=== PATIENT | female | born 1950 | race Caucasian/White ===

== ENCOUNTER 2017-04-17 12:21 | Inpatient (IN) | payer MEDICAID ==
[2017-04-17 13:41] LABS: APTT 28.9 SECONDS (22.8-39.4); INR 1.11 (0.85-1.17); PROTIME 14.2 SECONDS (11.6-15.0)
[2017-04-17 13:46] LABS: BASOPHILS 0.3 % (0-2); EOSINOPHILS 2.6 % (0-7); HEMATOCRIT 36.3 % (36.0-48.0); HEMOGLOBIN 11.5 g/dL (12-16); IMMATURE GRANULOCYTES 0.4 % (0-5); MCH 30.5 pg (26.0-34.0); MCHC 31.7 g/dL (31.0-37.0); MCV 96.3 fL (80.0-100.0); MEAN PLATELET VOLUME 11.6 fL (7.4-10.4); MONOCYTES 6.4 % (2-11); NEUTROPHILS 61.3 % (40-80); PLATELET COUNT 369 10x3/uL (130-400); RBC 3.77 10x6/uL (4.00-5.40); RDW 14.6 % (11.5-14.5); WBC 11.2 10x3/uL (4.8-10.8)
[2017-04-17 13:47] LABS: ANION GAP 13.9 mmol/L (8-16); BILIRUBIN - TOTAL 0.16 mg/dL (0.2-1.3); CALCIUM 8.2 mg/dL (8.5-10.1); CARBON DIOXIDE 26.2 mmol/L (21.0-32.0); CREATININE - SERUM 1.6 mg/dL (0.6-1.3); POTASSIUM - SERUM 4.1 mmol/L (3.5-5.1); PROTEIN - SERUM 6.9 g/dL (6.4-8.2)
[2017-04-17 16:08] LABS: UDS - AMPHET NEGATIVE QUAL (NEGATIVE); UDS - BARB NEGATIVE QUAL (NEGATIVE); UDS - BENZO NEGATIVE QUAL (NEGATIVE); UDS - COCAINE NEGATIVE QUAL (NEGATIVE); UDS - OPIATE POSITIVE QUAL (NEGATIVE); UDS - PCP NEGATIVE QUAL (NEGATIVE); UDS - THC NEGATIVE QUAL (NEGATIVE)
[2017-04-17 16:13] LABS: APPEARANCE HAZY (CLEAR); BACTERIA MODERATE /hpf (NONE SEEN); BILIRUBIN NEGATIVE (NEGATIVE); COLOR YELLOW (YELLOW); GLUCOSE NEGATIVE (NEGATIVE); KETONE NEGATIVE (NEGATIVE); NITRITE NEGATIVE (NEGATIVE); PROTEIN NEGATIVE (NEGATIVE); RED CELLS - URINE 0-5 /hpf (0-5); SPECIFIC GRAVITY 1.025 (1.005-1.020); UROBILINOGEN NORMAL (NORMAL)
--- NOTE | 2017-04-17 21:29 | NUR ---
[facility] IS A TOTAL, LEVINQUIN IS JOFRNOHQ-DY-DCS, PT IS ACHS -166, DIDNT COVER PT NOT EATING, TELEMTRY-*SR-72, MEDMLH-CO-82/43, T-98.9, P-86, R-22, 02-4.5L, SORES ON BOTTOM, MARIA [place] ROSARIO, JAY AREA, BLOODSUGAR 166, DIDN'T COVER AT THIS TIME PT NOT EATING, BED IS LOW, SRX2, CALL LIGHT IN REACH, WILL CONTINUE PLAN OF CARE
[2017-04-17] MEDS ORDERED: ZYLOPRIM100 MG PO (22:33)
[2017-04-17] MEDS ORDERED: NEURONTIN 300300 MG PO (22:34)
[2017-04-17] MEDS ORDERED: NORCO 7.5/325 T1 TA1 PO (22:36)
[2017-04-17] MEDS ORDERED: LANTUS INSULIN10 ML SC (22:37)
[2017-04-17] MEDS ORDERED: LISINOPRIL2.5 MG PO (22:37)
[2017-04-17] MEDS ORDERED: FUROSEMIDE40 MG PO (22:38)
[2017-04-17] MEDS ORDERED: REQUIP0.25 MG PO (22:38)
[2017-04-17] MEDS ORDERED: PRAVACHOL40 MG PO (22:39)
[2017-04-17] MEDS ORDERED: GLUCOPHAGE500 MG PO (22:39)
[2017-04-17] MEDS ORDERED: BUTRANS1 EAC2 TRANSDERM (22:42)
[2017-04-17] MEDS ORDERED: VENTOLIN HFA18 GM INH (22:45)
[2017-04-17] MEDS ORDERED: CELEXA10 MG PO (22:46)
[2017-04-17] MEDS ORDERED: FERROUS SULFAT325 MG PO (22:47)
[2017-04-17] MEDS ORDERED: BACTROBAN CREAM15 GM TOPICAL (22:48)
[2017-04-18] VITALS: BP 111/52
[2017-04-18 01:53] VITALS: BMI 30.5
[2017-04-18 04:00] VITALS: BP 114/56
--- NOTE | 2017-04-18 07:32 | NUR ---
AM ROUNDING- RECIEVED REPORT FROM BRAILLE PROOFREADER NURSE JOSEPH. PT IS CURRENTLY LAYING IN BED ON BACK WITH EYES OPEN RESTING. THIS NURSE INTRODUCED MYSLEF PTS NURSE FOR THE DAY, PT SHOOK HEAD IN UNDERSTANDING. WHEN ASKED IF PT WAS IN ANY PAIN PT REPLIES BY SHAKING HEAD. ON 02 AT 4.5L VIA NC. ON MONITOR SHWOING SR, HR 71. IV SEEN TO LEFT FOREARM THAT IS CURRENTLY SALINE LOCKED. BED ALARM IS ON. BED IS IN LOW POSITION, SIDE RAILS ARE UP X2, AND CALL LIGHT IS IN REACH. WILL CONTINUE TO MONITOR AND CONTINUE WITH PLAN OF CARE.
[2017-04-18 08:21] VITALS: BP 116/47
[2017-04-18 12:19] VITALS: BP 118/49
[2017-04-18 12:26] VITALS: BMI 30.4
--- NOTE | 2017-04-18 12:31 | NUR ---
RECIEVED CALL FROM PTS SISTER. PRIOR ON THIS SHIFT I RECEIVED PHONE CALL FROM PTS NIECE (CAREGIVER) WHILE NIECE WAS CHECKING ON PT, I ASKED NIECE ABOUT PTS SORES/SCABS TO PERINEAL/ GROIN AREA. NIECE STATES THAT [facility] AND PT HAS RECIEVED SCABS/SORES THERE FROM [facility] NOT TURNING HER. PTS NIECE PROCEEDED TO CONTINUE TO SAY I'M HER CAREGIVER AND I TAKE GOOD CARE OF HER AND MAKE SURE I TURN AND CLEAN HER. PTS SISTER CALLED AND STATES TO THIS NURSE THAT PTS NIECE (HER DAUGHTER) IS PTS CARGIVER AND PROCEEDED TO TELL ME THAT PT RECIEVED SCABS/[facility]OR[facility] FROM STAFF NOT TURNING HER. I INFORMED PTS SISTER THAT I WAS ASKING NIECE WHILE SPEAKING TO HER ABOUT SCABS/SORES BECAUSE I HAD NOTICIED IT IN SHIFT ASSESSMENT. PTS SISTER STATES THAT PTS NIECE TAKES CARE OF HER AND TAKES GOOD CARE OF HER. I INFORMED PTS SISTER THAT I UNDERSTAND AND I DID'T SAY SHE DID NOT TAKE CARE OF HER AND THAT I WAS ASKING BECAUSE THIS NURSE SAW IT WHILE DOING SHIFT ASSESSMENT.
--- NOTE | 2017-04-18 14:02 | NUR ---
CANDI CRANE AND Celeste TURNED PT ON LEFT SIDE.
--- NOTE | 2017-04-18 16:53 | NUR ---
GIACOMO CASTANEDA NP MADE AWARE OF PTS WOUNDS TO PERINEAL/GROIN AREA. GIACOMO CASTANEDA NP STATES SHE WILL CONSULT WOUND CARE AND POSSIBLE PLACE NEW ORDERS IN FOR MEDICATION FOR AREA.
[2017-04-18 17:30] LABS: BASOPHILS 0.1 % (0-2); EOSINOPHILS 0 % (0-7); HEMATOCRIT 35.5 % (36.0-48.0); IMMATURE GRANULOCYTES 0.3 % (0-5); LYMPHOCYTES 9.1 % (15-50); MCH 30.5 pg (26.0-34.0); MONOCYTES 3.6 % (2-11); NEUTROPHILS 86.9 % (40-80); PLATELET COUNT 400 10x3/uL (130-400); RBC 3.61 10x6/uL (4.00-5.40); RDW 14.6 % (11.5-14.5); WBC 12.3 10x3/uL (4.8-10.8)
[2017-04-18 17:33] LABS: MCV 98.3 fL (80.0-100.0)
--- NOTE | 2017-04-18 17:38 | NUR ---
CANDI CRANE AND Celeste CLEANED PT UP (PT IS INCONTINENT OF URINE) AND TURNED PT TO RIGHT SIDE. THIS NURSE NOTICED WHEN CLEANING PT UP THAT ABDOMEN IS DISTENDED AND SLIGHTLY HARD. GIACOMO CASTANEDA NP ON UNIT. NOTIFIED HER OF THIS. DR. HINOJOSA AND GIACOMO CASTANEDA NP WENT TO ROOM TO MAKE ROUNDS ON PT. NO NEED AT THIS CURRENT TIME. WILL CONTINUE TO MONITOR.
[2017-04-18 17:54] LABS: ANION GAP 12.6 mmol/L (8-16); CALCIUM 8.2 mg/dL (8.5-10.1); CARBON DIOXIDE 26.9 mmol/L (21.0-32.0); CREATININE - SERUM 1.9 mg/dL (0.6-1.3); POTASSIUM - SERUM 4.5 mmol/L (3.5-5.1)
--- NOTE | 2017-04-18 18:22 | NUR ---
SCDS PLACED ON PT ORDERED.
--- NOTE | 2017-04-18 19:30 | NUR ---
RECEIVED REPORT, WILL ASSUME CARE OF PT, TRAVIS AT BEDSIDE, DENIES ANY NEEDS AT THIS TIME, SCD ARE ON, BED IS LOW, SRX2, CALL LIGHT IN REACH, WILL CONTINUE PLAN OF CARE
[2017-04-18 20:00] VITALS: BP 107/40
--- NOTE | 2017-04-18 21:00 | NUR ---
BLOODSUGAR-275- GAVE 6 UNITS ORDER
[2017-04-19] VITALS: BP 139/51
--- NOTE | 2017-04-19 02:35 | NUR ---
ASSESSMENT COMPLETE, SEE FLOWSHEET, MINING HELPER IN ROOM GIVEN TOTAL BED BATH, WILL CONTINUE PLAN OF CARE
[2017-04-19 05:55] VITALS: BP 160/85
[2017-04-19 06:32] LABS: BASOPHILS 0.1 % (0-2); EOSINOPHILS 0 % (0-7); HEMATOCRIT 33.3 % (36.0-48.0); HEMOGLOBIN 10.6 g/dL (12-16); IMMATURE GRANULOCYTES 0.7 % (0-5); LYMPHOCYTES 10.4 % (15-50); MCH 30.5 pg (26.0-34.0); MCHC 31.8 g/dL (31.0-37.0); MEAN PLATELET VOLUME 11.3 fL (7.4-10.4); MONOCYTES 2.6 % (2-11); NEUTROPHILS 86.2 % (40-80); PLATELET COUNT 442 10x3/uL (130-400); RBC 3.47 10x6/uL (4.00-5.40); RDW 14.6 % (11.5-14.5)
[2017-04-19 06:50] LABS: ALBUMIN 2.2 g/dL (3.4-5.0); ANION GAP 13.4 mmol/L (8-16); BILIRUBIN - TOTAL 0.11 mg/dL (0.2-1.3); CALCIUM 8.2 mg/dL (8.5-10.1); CARBON DIOXIDE 27.9 mmol/L (21.0-32.0); CREATININE - SERUM 1.6 mg/dL (0.6-1.3); POTASSIUM - SERUM 4.3 mmol/L (3.5-5.1); PROTEIN - SERUM 6.7 g/dL (6.4-8.2)
--- NOTE | 2017-04-19 07:52 | NUR ---
AM ROUNDING- RECIEVED REPORT FROM FRUIT RECEIVER NURSE JOSEPH. PT IS CURRENTLY LAYING IN BED ON BACK WITH EYES CLOSED RESTING. EQUAL CHEST RISE AND FALL SEEN. ON 02 AT 4.5 VIA NC. ON MONITOR SHOWING SR, HR 74. LEFT CHEST INFUSAPORT SEEN THAT IS ACCESSED. SCDS ARE ON. NO NEED AT THIS CURRENT TIME. BED IS IN LOW POSITION, SIDE RAILS ARE UP X2, AND CALL LIGHT IS IN REACH. WILL CONTINUE TO MONITOR AND CONTINUE WITH PLAN OF CARE.
[2017-04-19 08:00] VITALS: BP 140/55
[2017-04-19 12:00] VITALS: BP 161/50
--- NOTE | 2017-04-19 14:45 | NUR ---
ELENI TIMMONS AND I CLEANED PT UP (PT IS INCONTINENT OF URINE) AND CHANGED LINEN. PT TURNED ON LEFT SIDE (PRIOR ON SHIFT PT WAS TURNED ON RIGHT SIDE). IV ANTIBIOTICS HUNG ORDERED. NO NEED AT THIS CURRENT TIME. WILL CONTINUE TO MONITOR.
[2017-04-19 16:00] VITALS: BP 151/61
--- NOTE | 2017-04-19 17:50 | NUR ---
PT IS CURRENTLY SITTING UP IN BED WITH EYES OPEN RESTING. ASSISTED PT WITH GETTING SITUATED IN BED TO EAT DINNER. NO NEED AT THIS CURRENT TIME. WILL CONTINUE TO MONITOR.
[2017-04-19 20:00] VITALS: BP 123/47
--- NOTE | 2017-04-19 20:21 | NUR ---
BLOODSUGAR-248, [id number] R
--- NOTE | 2017-04-19 23:15 | NUR ---
HELP AIRPLANE TESTER GIVE PT BATH/LINEN CHANGE AND REPOSITION PT
[2017-04-20] VITALS: BP 134/55
[2017-04-20 04:00] VITALS: BP 130/49
[2017-04-20 05:37] LABS: BASOPHILS 0.1 % (0-2); EOSINOPHILS 0 % (0-7); HEMATOCRIT 35.9 % (36.0-48.0); HEMOGLOBIN 11.3 g/dL (12-16); IMMATURE GRANULOCYTES 1.6 % (0-5); LYMPHOCYTES 11.2 % (15-50); MCH 30.4 pg (26.0-34.0); MCHC 31.5 g/dL (31.0-37.0); MCV 96.5 fL (80.0-100.0); MEAN PLATELET VOLUME 11.2 fL (7.4-10.4); MONOCYTES 2.9 % (2-11); NEUTROPHILS 84.2 % (40-80); PLATELET COUNT 461 10x3/uL (130-400); RBC 3.72 10x6/uL (4.00-5.40); RDW 14.6 % (11.5-14.5); WBC 10.8 10x3/uL (4.8-10.8)
[2017-04-20 06:15] LABS: ALBUMIN 2.2 g/dL (3.4-5.0); ANION GAP 15.3 mmol/L (8-16); BILIRUBIN - TOTAL 0.2 mg/dL (0.2-1.3); CALCIUM 8.6 mg/dL (8.5-10.1); CARBON DIOXIDE 28.7 mmol/L (21.0-32.0); CREATININE - SERUM 1.4 mg/dL (0.6-1.3); PROTEIN - SERUM 7.1 g/dL (6.4-8.2)
--- NOTE | 2017-04-20 07:05 | NUR ---
REPORT RECIEVED. RR EVEN AND UNLABORED, PT DENIES NEEDS AT THIS TIME. SCDS ON PT. PT IS ALERT AND ORIENTED X4. WILL CTM.
[2017-04-20 08:00] VITALS: BP 134/48
[2017-04-20 12:00] VITALS: BP 125/53
--- NOTE | 2017-04-20 14:04 | NUR ---
SPOKE TO [facility] ABOUT MEDICAL RECORDS. EXPLAINED THAT THEY WILL FAX OVER RECORDS.
--- NOTE | 2017-04-20 14:15 | NUR ---
PT RESTING QUIELTY, INCONTINENT LARGE AMT URINE. CHANGED JAY PAD, PERINEAL CARE PROVIDED. NO DRESSING ON PRESSURE ULCER ON COCCYX AREA. SMALL, 4CM x4CM CIRCULAR PU NOTED. APPEARS TO BE AT LEAST STAGE III. PT TURNED, WILL CTM.
[2017-04-20 16:00] VITALS: BP 106/60
--- NOTE | 2017-04-20 16:25 | NUR ---
PT RESTING QUILETY, RR EVEN AND UNLABORED. PT CURRENTLY IN UNCONTROLLED A-FIB AT 121. SPOKE TO GIACOMO ELLIS ABOUT PT CONDITION. AWAITING ORDERS.
--- NOTE | 2017-04-20 16:43 | NUR ---
EKG PERFOMRED. PT RESTING QUIELTY, ALERT AND ORIENTED X4.
[2017-04-20 18:04] LABS: CKMB 0.3 U/L (0.0-3.6); CREATINE KINASE 26 UL (21-215)
[2017-04-20 18:07] LABS: TROPONIN-I 0.068 ng/mL (0.000-0.060)
--- NOTE | 2017-04-20 18:31 | NUR ---
PT RESTING QUIELTY, RR EVEN AND UNLABORED. PT IS NOT SYMPTOMATIC SINCE PT HAS HAD A-FIB. NO NEW ORDERS YET. ASKED PT IF SHE FELT WET, TO WHICH SHE DENIED. WILL GIVE REPORT ON PT CONDITION FOR THE DAY.
--- NOTE | 2017-04-20 19:51 | NUR ---
RECEIVED REPORT, WILL ASSUME CARE OF PT, PT SLEEPING, SCD ARE ON, BED IS LOW, SRX2, CALL LIGHT IN REACH, JAZMINE ALARM IS ON, WILL CONTINUE PLAN OF CARE
[2017-04-20 20:51] VITALS: BP 106/49
[2017-04-20 22:51] LABS: CKMB 0.2 U/L (0.0-3.6); CREATINE KINASE 34 UL (21-215)
[2017-04-20 22:52] LABS: TROPONIN-I 0.093 ng/mL (0.000-0.060)
[2017-04-21 01:15] VITALS: BP 122/57
[2017-04-21 03:45] VITALS: BP 139/57
[2017-04-21 05:51] LABS: BASOPHILS 0.1 % (0-2); EOSINOPHILS 0 % (0-7); HEMATOCRIT 36.2 % (36.0-48.0); HEMOGLOBIN 11.5 g/dL (12-16); IMMATURE GRANULOCYTES 2.6 % (0-5); LYMPHOCYTES 12.1 % (15-50); MCH 30.5 pg (26.0-34.0); MCHC 31.8 g/dL (31.0-37.0); MEAN PLATELET VOLUME 11.6 fL (7.4-10.4); MONOCYTES 6.9 % (2-11); NEUTROPHILS 78.3 % (40-80); PLATELET COUNT 441 10x3/uL (130-400); RBC 3.77 10x6/uL (4.00-5.40); RDW 14.6 % (11.5-14.5); WBC 10.5 10x3/uL (4.8-10.8)
--- NOTE | 2017-04-21 07:13 | NUR ---
AM ROUNDS- PT IN BED, RECEIVING A UPDRAFT AT THIS TIME. RESP EVEN AND REGULAR. PT DENIES ANY NEEDS AT THIS TIME. CALL [facility] TIN REACH, BED LOW AND WHEELS LOCKED, BEDSIDE RAILS X2, CALL LIGHT IN REACH, NAD NOTED, WILL CONTINUE TO MONITOR.
[2017-04-21 07:23] LABS: ALBUMIN 2.2 g/dL (3.4-5.0); ALKALINE PHOSPHATASE 93 U/L (46-116); ALT (SGPT) 14 U/L (10-68); BILIRUBIN - TOTAL 0.11 mg/dL (0.2-1.3); CALC OSMOLALITY 301 mosm/kg (275-300); CALCIUM 8.2 mg/dL (8.5-10.1); CARBON DIOXIDE 30.4 mmol/L (21.0-32.0); CHLORIDE - SERUM 100 mmol/L (98-107); CKMB 0.3 U/L (0.0-3.6); CREATINE KINASE 25 UL (21-215); CREATININE - SERUM 1.7 mg/dL (0.6-1.3); GLUCOSE 249 mg/dL (74-106); MAGNESIUM - SERUM 1.3 mg/dL (1.8-2.4); PHOSPHOROUS 3.2 mg/dL (2.5-4.9); POTASSIUM - SERUM 4.2 mmol/L (3.5-5.1); PROTEIN - SERUM 6.6 g/dL (6.4-8.2); SODIUM 139 mmol/L (136-145); UREA NITROGEN 58 mg/dL (7-18); eGFR NON AFRICAN AMERICAN 32 mL/min (90-120)
[2017-04-21 08:00] VITALS: BP 123/54
--- NOTE | 2017-04-21 08:11 | NUR ---
AM MEDS GIVEN AT THIS TIME. ALSO HUNG IVBP CEFEPIME. DIETARY AT BEDSIDE TO PROVIDE PT WITH BREAKFAST TRAY. PT DENIES ANY NEEDS AT THIS TIME. CALL LIGHT IN REACH, NAD NOTED, WILL CONTINUE TO MONITOR.
--- NOTE | 2017-04-21 11:24 | NUR ---
BLOOD SUGAR OF 389, 16UNITS OF HUMULIN GIVEN PER S/S. PT DENIES ANY NEEDS AT THIS TIME. CALL LIGHT IN REACH, NAD NOTED, WILL CONTINUE TO MONITOR.
[2017-04-21 12:00] VITALS: BP 125/50
--- NOTE | 2017-04-21 14:15 | NUR ---
Nutrition Follow Up: Pt stated that her appetite is "okay." She said that she would drink Glucern if ordered. Pt is eating 50% meal avg on a diabetic [facility] soft diet. Wt gain noted. No BM since admit. Labs reviewed - Glucose elevated. Meds noted including Lasix, Solu Medrol. Rec continue current diet. Will send Glucerna with meals. RD following.
[2017-04-21 16:00] VITALS: BP 126/62
--- NOTE | 2017-04-21 17:12 | NUR ---
BLOOD SUGAR OF 231 8UNITS OF HUMULIN R GIVEN PER S/S. PT IN BED, EATING BREAKFAST, DENIES ANY NEEDS AT THIS TIME. CALL LIGHT IN REACH, NAD NOTED, WILL CONTINUE TO MONITOR.
--- NOTE | 2017-04-21 20:15 | NUR ---
REST IN BED AND WATCH TV.
[2017-04-21 21:26] VITALS: BP 123/47
--- NOTE | 2017-04-22 03:03 | NUR ---
PT LYING IN BED, EYES CLOSED, RESPIRATIONS MILDLY LABORED, MOUTH WIDE OPEN, O2 VIA NC @ 4 LPM. CONTINUE TO MONITOR CLOSELY. BED LOW, CALL LIGHT IN REACH, SIDE RAILS X 2, HOB 20 DEGREES.
--- NOTE | 2017-04-22 04:43 | NUR ---
REST COMFORTABLY IN BED, EYE CLOSE, CALL LIGHT IN REACH.
[2017-04-22 06:07] LABS: BASOPHILS 0.1 % (0-2); EOSINOPHILS 0 % (0-7); HEMOGLOBIN 11.5 g/dL (12-16); IMMATURE GRANULOCYTES 2.5 % (0-5); LYMPHOCYTES 11.4 % (15-50); MCH 30.3 pg (26.0-34.0); MCHC 31.9 g/dL (31.0-37.0); MEAN PLATELET VOLUME 11.3 fL (7.4-10.4); MONOCYTES 7.2 % (2-11); NEUTROPHILS 78.8 % (40-80); PLATELET COUNT 392 10x3/uL (130-400); RBC 3.79 10x6/uL (4.00-5.40); RDW 14.5 % (11.5-14.5); WBC 12.7 10x3/uL (4.8-10.8)
[2017-04-22 06:47] LABS: ALBUMIN 2.1 g/dL (3.4-5.0); BILIRUBIN - TOTAL 0.21 mg/dL (0.2-1.3); CALCIUM 8.3 mg/dL (8.5-10.1); CARBON DIOXIDE 30.2 mmol/L (21.0-32.0); CREATININE - SERUM 1.4 mg/dL (0.6-1.3); PROTEIN - SERUM 6.7 g/dL (6.4-8.2)
[2017-04-22 06:52] LABS: ANION GAP 13.3 mmol/L (8-16); POTASSIUM - SERUM 3.5 mmol/L (3.5-5.1)
--- NOTE | 2017-04-22 07:25 | NUR ---
AM ROUNDS- PT IN BED, DENIES ANY NEEDS AT THIS TIME. RESP EVEN AND UNLABORED, LT CHEST INFUSAPORT INFUSING NS @KVO. BED LOW AND WHEELS LOCKED, BEDSIDE RAILS X2, CALL LIGHT IN REACH, NAD NOTED, WILL CONTINUE TO MONITOR.
[2017-04-22 07:59] VITALS: BP 131/60
--- NOTE | 2017-04-22 08:25 | NUR ---
AM MEDS GIVEN AT THIS TIME. PT IN BED, EATING BREAKFAST, DENIES ANY NEEDS AT THIS TIME. IVPB ZOSYN HUNG AT THIS TIME. NAD NOTED, WILL CONTINUE TO MONITOR.
--- NOTE | 2017-04-22 11:22 | NUR ---
BLOOD SUGAR OF 173, 8 UNITS OF HUMULIN R GIVEN PER S/S. PT IN BED, DENIES ANY NEEDS AT THIS TIME. CALL LIGHT IN REACH, CLUB MANAGER AT BEDSIDE TO DO VITAL SIGNS. NAD NOTED, WILL CONTINUE TO MONITOR.
[2017-04-22 12:03] VITALS: BP 130/94
--- NOTE | 2017-04-22 15:03 | NUR ---
INFUSAPORT NEEDLE CHANGED AT THIS TIME USING STERILE TECHNIQUE. PT TOLERATED PROCEDURE WELL, DENIE ANY NEEDS AT THIS TIME. CALL LIGHT INR EACH, NAD NOTED, WILL CONTINUE TO MONITOR. IV FLUSHES BUT DOES NOT DRAW BLOOD. PT STATED THAT SOMETIMES HER PORT WORKS FOR BLOOD DRAWS AND OTHER TIMES IT DOES NOT.
[2017-04-22 16:00] VITALS: BP 114/57
--- NOTE | 2017-04-22 17:06 | NUR ---
BLOOD SUGAR OF 191, 8 UNITS OF HUMULIN R GIVEN PER S/S. PT IN BED, EATING DINNER DENIES ANY NEEDS AT THIS TIME. CALL LIGHT IN REACH, NAD NOTED, WILL CONTINUE TO MONITOR.
[2017-04-22 20:48] VITALS: BP 126/57
--- NOTE | 2017-04-22 22:20 | NUR ---
CHOCOLATE PUDDING GIVEN HS SNACK WITH LANTUS
[2017-04-23] VITALS: BP 122/48
--- NOTE | 2017-04-23 00:31 | NUR ---
NURSE ROUNDS 04/22/17 20:00 - PT LYING IN BED, AWAKE, ALERT, ORIENTED, LOOKING AT TELEVISION, DENIES ANY NEEDS. CONTINUE TO MONITOR CLOSELY. BED LOW, CALL LIGHT IN REACH, SIDE RAILS X 2, HOB 30 DEGREES.
[2017-04-23 06:11] LABS: BASOPHILS 0.1 % (0-2); EOSINOPHILS 0 % (0-7); HEMATOCRIT 36.4 % (36.0-48.0); HEMOGLOBIN 11.7 g/dL (12-16); IMMATURE GRANULOCYTES 3.5 % (0-5); LYMPHOCYTES 17.4 % (15-50); MCH 30.4 pg (26.0-34.0); MCHC 32.1 g/dL (31.0-37.0); MCV 94.5 fL (80.0-100.0); MEAN PLATELET VOLUME 11.6 fL (7.4-10.4); MONOCYTES 8.4 % (2-11); NEUTROPHILS 70.6 % (40-80); PLATELET COUNT 378 10x3/uL (130-400); RBC 3.85 10x6/uL (4.00-5.40); RDW 14.4 % (11.5-14.5); WBC 14.7 10x3/uL (4.8-10.8)
--- NOTE | 2017-04-23 06:17 | NUR ---
PT C/O GREAT GENERALIZED PAIN, REQUESTING PRN PAIN MEDICATION. PT DENIES ANY OTHER NEEDS. CONTINUE TO MONITOR CLOSELY.
[2017-04-23 06:35] LABS: ALBUMIN 2.2 g/dL (3.4-5.0); ANION GAP 14.2 mmol/L (8-16); BILIRUBIN - TOTAL 0.2 mg/dL (0.2-1.3); CALCIUM 8.2 mg/dL (8.5-10.1); CARBON DIOXIDE 29.7 mmol/L (21.0-32.0); CREATININE - SERUM 1.6 mg/dL (0.6-1.3); POTASSIUM - SERUM 3.9 mmol/L (3.5-5.1); PROTEIN - SERUM 6.6 g/dL (6.4-8.2)
--- NOTE | 2017-04-23 07:21 | NUR ---
PT SITTING UP IN BED SLEEPING ARROUSES EASILY DENIES NEEDS WILL CONT TO MONITOR
[2017-04-23 08:06] VITALS: BP 129/59
[2017-04-23 09:37] LABS: MAGNESIUM - SERUM 1.3 mg/dL (1.8-2.4); PHOSPHOROUS 3.3 mg/dL (2.5-4.9)
[2017-04-23 13:02] VITALS: BP 134/63
--- NOTE | 2017-04-23 16:22 | NUR ---
Patient Name: MODE ORTIZ Admission Status: ER Accout number: [id number] Admission Date: 04-17-2017 : 1950 Admission Diagnosis:PNEUMONIA, UNSPECIFIED ORGANISM Attending: JULIANA HINOJOSA Current LOS: 6 Anticipated DC Date: 04-28-2017 Planned Disposition: Home with Home Health Primary Insurance: MEDICAID [place] Discharge Planning Comments: CM met with patient to assess discharge plan / needs. Patient states she plans to discharge back home to niece's house (Desiraejaime Santiago) with [employer] and [facility] (Personal Care Agency). States home environment is safe. Denies any discharge planning needs at this time. Patient requested that CM call her nicolton Merrill to obtain list of home equipment and to coordinate discharge planning. CM called [employer] and verified that patient is current with agency. CM called alicia Merrill completed assessment, obtained list of home medical equipment. Desirae stated that patient will need ambulance transport at discharge. Family is unable to bring patient's wheelchair to hospital prior to discharge because "their car is too small". Desirae requested that CM call her at [phone] when DC is anticipated so she could make sure someone is home for patient arrival. Desirae is paid to care for patient through [facility]. Desirae provides patient's personal care needs: bathing, dressing, meal prep, etc. Desirae states that she, herself, is scheduled to have surgery Thursday04/28/17. States she has arranged alternate caregivers through [facility] to assist with patient's care while Desirae is recovering from surgery. If patient is discharged Thursday04/28/17, the patient's sister, Haroon Neal will need to be called so she can be at the patient's home when she arrives. Patient may need home O2 / walk test and Nebulizer at discharge. CM will continue to follow and assist PRN with discharge planning / needs. DesiraeMaxwell Urias, Haroon Neal, Sister, Is the patient Alert and Oriented? Yes * How many steps to enter\\exit or inside your home? ramp * PCP Franca [phone] * Pharmacy Budget [phone] * Preadmission Environment Home with Family * ADLs Partial Dependent * Partial ADLs (Assistance needed) Bathing, Dressing, Medication Managment, Transfers. * Equipment: Glucometer, Hospital Bed, Paolo Lift, Shower Chair, Wheel Chair * Other Equipment incontinence supplies: adult briefs and chuxs * List name and contact numbers for known caregivers / representatives who currently or will assist patient after discharge: Alicia Faustin, * Community resources currently utilized Home Health Other * Please name any agencies selected above. [facility] [phone] [facility]) [phone] * Additional services required to return to the preadmission environment? Yes * Can the patient safely return to the preadmission environment? Yes * Has this patient been hospitalized within the prior 30 days at any hospital? Yes Netsuite Consultant: Jaye Holman
[2017-04-23 16:23] VITALS: BP 122/59
--- NOTE | 2017-04-23 18:17 | NUR ---
PT SITTING UP IN BED WATCHING TV DENIES NEEDS
[2017-04-23 20:00] VITALS: BP 105/49
--- NOTE | 2017-04-23 21:10 | NUR ---
PT LYING IN BED, AWAKE, ALERT, ORIENTED, DENIES ANY NEEDS AT THIS TIME. FSBS 128, CHOCOLATE PUDDING AND CÉSAR CRACKERS GIVEN FOR HS SNACK. CONTINUE TO MONITOR CLOSELY. BED LOW, CALL LIGHT IN REACH, SIDE RAILS X 2, HOB 30 DEGREES.
[2017-04-24] VITALS: BP 120/53
[2017-04-24 04:00] VITALS: BP 110/51; BP 115/45
[2017-04-24 05:21] LABS: BASOPHILS 0.2 % (0-2); EOSINOPHILS 0.6 % (0-7); HEMATOCRIT 36.1 % (36.0-48.0); HEMOGLOBIN 11.5 g/dL (12-16); IMMATURE GRANULOCYTES 3.8 % (0-5); LYMPHOCYTES 26.6 % (15-50); MCH 30.7 pg (26.0-34.0); MCHC 31.9 g/dL (31.0-37.0); MEAN PLATELET VOLUME 11.7 fL (7.4-10.4); MONOCYTES 9.4 % (2-11); NEUTROPHILS 59.4 % (40-80); PLATELET COUNT 315 10x3/uL (130-400); RBC 3.74 10x6/uL (4.00-5.40); RDW 14.8 % (11.5-14.5); WBC 17.6 10x3/uL (4.8-10.8)
[2017-04-24 05:27] LABS: MCV 96.5 fL (80.0-100.0)
--- NOTE | 2017-04-24 05:27 | NUR ---
PT RESTING COMFORTABLY, NO NEEDS AT THIS TIME. CONTINUE TO MONITOR CLOSELY.
[2017-04-24 05:46] LABS: ALBUMIN 2.1 g/dL (3.4-5.0); ANION GAP 9.1 mmol/L (8-16); BILIRUBIN - TOTAL 0.3 mg/dL (0.2-1.3); C-REACTIVE PROTEIN 0.8 mg/dL (0.0-0.9); CALCIUM 8.5 mg/dL (8.5-10.1); CARBON DIOXIDE 32.5 mmol/L (21.0-32.0); CREATININE - SERUM 1.6 mg/dL (0.6-1.3); MAGNESIUM - SERUM 1.6 mg/dL (1.8-2.4); PHOSPHOROUS 2.9 mg/dL (2.5-4.9); POTASSIUM - SERUM 3.6 mmol/L (3.5-5.1); PROTEIN - SERUM 6.1 g/dL (6.4-8.2)
--- NOTE | 2017-04-24 07:12 | NUR ---
PT SITTING UP IN BED WATCHING TV DENIES NEEDS WILL CONT TO MONITOR
[2017-04-24 08:22] VITALS: BP 118/49
[2017-04-24 11:48] VITALS: BP 175/55
--- NOTE | 2017-04-24 13:27 | NUR ---
Nutrition Follow Up: Pt is eating 67% meal avg on a diabetic [facility] soft diet. +BM 04/23/17. Labs reviewed. Meds noted including Lasix, Prednisone. Rec continue current diet. RD following.
[2017-04-24 16:04] VITALS: BP 114/48
--- NOTE | 2017-04-24 17:57 | NUR ---
PT SITTING UP IN BED WATCHING TV DENIES NEEDS
[2017-04-24 19:00] VITALS: BP 100/50
--- NOTE | 2017-04-24 22:33 | NUR ---
PATIENT IS ALERT, WATCHING TV. CALL LIGHT IN REACH, DENIES ANY NEEDS AT THIS ITME.
[2017-04-25] VITALS: BP 126/48
[2017-04-25 04:00] VITALS: BP 140/52
[2017-04-25 05:51] LABS: BASOPHILS 0.2 % (0-2); HEMATOCRIT 35.1 % (36.0-48.0); HEMOGLOBIN 11.2 g/dL (12-16); IMMATURE GRANULOCYTES 3.1 % (0-5); LYMPHOCYTES 24.4 % (15-50); MCH 30.3 pg (26.0-34.0); MCHC 31.9 g/dL (31.0-37.0); MCV 94.9 fL (80.0-100.0); MEAN PLATELET VOLUME 11.7 fL (7.4-10.4); NEUTROPHILS 63.3 % (40-80); PLATELET COUNT 288 10x3/uL (130-400); RDW 14.5 % (11.5-14.5); WBC 19.7 10x3/uL (4.8-10.8)
[2017-04-25 06:11] LABS: ANION GAP 10.1 mmol/L (8-16); CALCIUM 8.4 mg/dL (8.5-10.1); CARBON DIOXIDE 31.1 mmol/L (21.0-32.0); CREATININE - SERUM 1.5 mg/dL (0.6-1.3); MAGNESIUM - SERUM 1.9 mg/dL (1.8-2.4); PHOSPHOROUS 2.5 mg/dL (2.5-4.9); POTASSIUM - SERUM 4.2 mmol/L (3.5-5.1)
--- NOTE | 2017-04-25 07:18 | NUR ---
PT SITTING UP IN BED SLEEPING RECEIVING BREATHING TX NO S/S DISTRESS RR EVEN AND UNLABORED WILL CONT TO MONITOR
[2017-04-25 08:00] VITALS: BP 121/46
[2017-04-25 12:00] VITALS: BP 153/45
[2017-04-25 16:00] VITALS: BP 119/45
--- NOTE | 2017-04-25 18:05 | NUR ---
PT CLEANED UP FOR INC. PT SITTING UP IN BED DENIES NEEDS
--- NOTE | 2017-04-25 19:15 | NUR ---
RECEIVED CARE FROM DAY NURSE. PT LYING IN LOW ROSSI'S POSITION. EYES CLOSED. RESP EVEN AND UNLABORED. CALL LIGHT AT SIDE.
[2017-04-25 20:52] VITALS: BP 119/48
--- NOTE | 2017-04-25 23:01 | NUR ---
PT LYING IN BED WITH EYES CLOSED. RESP EVEN AND UNLABORED. CALL LIGHT AT SIDE. WILL CONTINUE TO MONITOR.
--- NOTE | 2017-04-26 01:00 | NUR ---
PT RESTING WELL, RESP EVEN AND UNLABORED. CALL LIGHT WITHIN REACH. WILL MONITOR.
[2017-04-26 01:06] VITALS: BP 112/49
[2017-04-26 04:00] VITALS: BP 118/49
[2017-04-26 07:17] LABS: BASOPHILS 0.1 % (0-2); EOSINOPHILS 0.9 % (0-7); HEMATOCRIT 34.4 % (36.0-48.0); HEMOGLOBIN 10.8 g/dL (12-16); IMMATURE GRANULOCYTES 3.7 % (0-5); LYMPHOCYTES 21.2 % (15-50); MCHC 31.4 g/dL (31.0-37.0); MCV 95.6 fL (80.0-100.0); NEUTROPHILS 66.1 % (40-80); PLATELET COUNT 280 10x3/uL (130-400); RDW 14.4 % (11.5-14.5); WBC 18.6 10x3/uL (4.8-10.8)
--- NOTE | 2017-04-26 07:54 | NUR ---
INCONTINENCE CARE PROVIDED AT THIS TIME. PT POSITIONED UPRIGHT IN BED FOR BREAKFAST. CALL LIGHT IN REACH, WILL CONTINUE WITH PLAN OF CARE.
[2017-04-26 07:59] LABS: ALBUMIN 2.1 g/dL (3.4-5.0); ANION GAP 11.7 mmol/L (8-16); BILIRUBIN - TOTAL 0.33 mg/dL (0.2-1.3); CALCIUM 8.8 mg/dL (8.5-10.1); CARBON DIOXIDE 31.7 mmol/L (21.0-32.0); CREATININE - SERUM 1.4 mg/dL (0.6-1.3); MAGNESIUM - SERUM 2.1 mg/dL (1.8-2.4); POTASSIUM - SERUM 4.4 mmol/L (3.5-5.1); PROTEIN - SERUM 6.3 g/dL (6.4-8.2)
[2017-04-26 08:00] VITALS: BP 113/45
[2017-04-26 08:01] LABS: PHOSPHOROUS 3.5 mg/dL (2.5-4.9)
--- NOTE | 2017-04-26 10:20 | NUR ---
PRN NORCO ADMINISTERED FOR PAIN 9/10 GENERALIZED AT THIS TIME.
--- NOTE | 2017-04-26 11:00 | NUR ---
URINE SAMPLE OBTAINED FOR URINE CULTURE.
[2017-04-26 16:00] VITALS: BP 129/48
--- NOTE | 2017-04-26 18:00 | NUR ---
REMAINS DRY AT THIS TIME. OXYGEN ON 2L VIA NC. RESPIRATIONS EVEN AND NON LABROED. LEFT CHEST PORT REMAINS PATENT. CALL LIGHT IN REACH, WILL CONTINUE WITH PLAN OF CARE.
[2017-04-26 19:00] VITALS: BP 104/45
--- NOTE | 2017-04-26 19:15 | NUR ---
REPORT RECEIVED. SHIFT ASSESSMENT COMPLETED PER FLOW SHEET. PT LAYING IN BED AWAKE AND ALERT. LT EYE IS CLOUDY PT REPORTS VISION IS DIMINISHED AND IT HAS BEEN LIKE THAT FOR SOME TIME. 2 L O2 VIA NC. S1S2 PRESENT. RADIAL AND PEDAL PULSES PALP. TELEMETRY MONITORING HR OF 91 NORMAL SINUS. BREATHING PATTERN SHALLOW. BS ACTIVE X4. PARALYSIS TO BLE. MUCOUS MEMBRANES MOIST. SKIN WARM AND DRY. LT CHEST IMPLANTED PORT PATENT, DRESSING CDI. SCD'S ON. CALL LIGHT WITHINR REACH. BED IN LOWEST POSITION. WILL CONTINUE TO MONITOR. SEE FLOW SHEET FOR COMPLETE ASSESSMENT.
--- NOTE | 2017-04-26 19:20 | NUR ---
REPORT RECEIVED. SHIFT ASSESSMENT COMPLETED PER FLOW SHEET. PT LAYING IN BED AWAKE AND ALERT, CONVERSANT, SPEECH CLEAR. S1S2 PRESENT. RADIAL AND PEDAL PULSES PALP. BREATH SOUNDS CLEAR EQUAL BILAT. BS ACTIVE X4. REPORT NO PROBLEMS VOIDING OR DEFECATING. MUCOUS MEMBRANES MOIST. SKIN WARM AND DRY. BRUISES NOTED TO RT HAND. RT WRIST PIV, PATENT, SALINE LOCKED. DENIES NEEDS AT THIS TIME. CALL LIGHT WITHIN REACH. BED IN LOWEST POSITION. WILL CONTINUE TO MONITOR.
--- NOTE | 2017-04-26 20:42 | NUR ---
PT LAYING IN BED AWAKE, CONVERSANT. MEDS ADMINISTERED PER EMAR. NO PROBLEMS NOTED TAKING MEDS. DENIES FURTHER NEEDS AT THIS TIME. CALL LIGHT WITHIN REACH. BED IN LOWEST POSITION. WILL CONTINUE TO MONITOR.
--- NOTE | 2017-04-26 20:53 | NUR ---
PT LAYING IN BED, MEDS ADMINISTERED PER EMAR, SEE FOR DETAILS. NO PROBLEMS NOTED TAKING MEDICATIONS. PT DENIES FURTHER NEEDS. CALL LIGHT WITHIN REACH. BED IN LOWEST POSITION. WILL CONTINUE TO MONITOR.
--- NOTE | 2017-04-26 22:00 | NUR ---
PT LAYING IN BED RESTING, NO DISTRESS NOTED. CALL LIGHT WITHIN REACH. BED IN LOWEST POSITION. WILL CONTINUE TO MONITOR.
[2017-04-27] VITALS: BP 114/42
--- NOTE | 2017-04-27 | NUR ---
PT LAYING IN BED RESTING, DENIES NEEDS AT THIS TIME. CALL LIGHT WITHIN REACH. WILL CONTINUE TO MONITOR.
--- NOTE | 2017-04-27 02:00 | NUR ---
PT LAYING IN BED NO DISTRESS NOTED. WILL CONTINUE TO MONITOR. CALL LIGHT WITHIN REACH. BED IN LOWEST POSITION.
--- NOTE | 2017-04-27 04:00 | NUR ---
PT LAYING IN BED RESTING, NO DISTRESS NOTED. CALL LIGHT WITHIN REACH. BED IN LOWEST POSITION. WILL CONTINUE TO MONITOR.
[2017-04-27 04:22] VITALS: BP 107/40
[2017-04-27 04:48] LABS: BASOPHILS 0.1 % (0-2); EOSINOPHILS 0.3 % (0-7); HEMATOCRIT 31.9 % (36.0-48.0); HEMOGLOBIN 10.2 g/dL (12-16); IMMATURE GRANULOCYTES 2.4 % (0-5); LYMPHOCYTES 13.3 % (15-50); MCH 30.5 pg (26.0-34.0); MCV 95.5 fL (80.0-100.0); MEAN PLATELET VOLUME 11.8 fL (7.4-10.4); MONOCYTES 7.3 % (2-11); NEUTROPHILS 76.6 % (40-80); PLATELET COUNT 259 10x3/uL (130-400); RBC 3.34 10x6/uL (4.00-5.40); RDW 14.6 % (11.5-14.5); WBC 21.3 10x3/uL (4.8-10.8)
[2017-04-27 05:10] LABS: ANION GAP 9.5 mmol/L (8-16); BILIRUBIN - TOTAL 0.29 mg/dL (0.2-1.3); CALCIUM 8.2 mg/dL (8.5-10.1); CARBON DIOXIDE 32.2 mmol/L (21.0-32.0); CREATININE - SERUM 1.4 mg/dL (0.6-1.3); POTASSIUM - SERUM 4.7 mmol/L (3.5-5.1); PROTEIN - SERUM 5.9 g/dL (6.4-8.2); VANCOMYCIN - RANDOM 18.2 ug/mL (10.0-20.0)
--- NOTE | 2017-04-27 05:25 | NUR ---
LAB CALLED FOR LOW GLUCOSE, PT IS ALERT AND ORIENTED, REPORTS NO DIZZINESS OR N/V. ORANGE JUICE AND MILK PROVIDED. ENCOURAGED PT TO DRINK THEM, SHE VERBALIZED UNDERSTANDING AND IS DRINKING HER MILK AT THE TIME. WILL RECHECK GLUCOSE. DENIES NEEDS. CALL LIGHT WITHIN REACH. BED IN LOWEST POSITION. WILL CONTINUE TO MONITOR.
--- NOTE | 2017-04-27 06:28 | NUR ---
PT LAYING IN BED, FSBS IS 110. NO INSULIN ADMINISTERED PER SLIDING SCALE. PT DENIES NEEDS. CALL LIGHT WITHIN REACH. BED IN LOWEST POSITION.
--- NOTE | 2017-04-27 07:00 | NUR ---
REPORT RECIEVED FROM OFF GOING NURSE. SEE FLOW SHEET FOR ASSESSMENT. PT ALERT AND ORIRENTED. ABLE TO WIGGLE LOWER EXTRIEMITES AND ABLE TO "FEEL THEM" WHENEVER FEET TOUCHED. NO FC. PT INCOINTIENT. PERICARE PREFORMED AND NEW LINEN TO BED. INFUSAPORT TO LEFT CHEST PATENT. CALL LIGHT IN REACH. WILL CONT POC
[2017-04-27 08:00] VITALS: BP 192/55
--- NOTE | 2017-04-27 10:43 | NUR ---
RHONDA PAGED R/T PT INCOT. AND HER STRICT I&O. PT CURRENTLY HAS NO FC. RHONDA NEW ORDER FOR FC PLACEMENT.
--- NOTE | 2017-04-27 11:09 | NUR ---
16 BENGALI FC PLACED PER ORDERS. 750ML OF CLEAR YELLOW URINE NOTED.
[2017-04-27 12:00] VITALS: BP 159/64
--- NOTE | 2017-04-27 12:00 | NUR ---
NO CHANGES FROM PREVIOUS ASSESSMENT. PT REPOSISTED FOR SKIN INTEGRITY AND COMFORT Q 2 HOURS. BREATHING NORMAL AND UNLABORED. CALL LIGHT IN REACH. WILL CONT POC.
--- NOTE | 2017-04-27 15:00 | NUR ---
NO CHANGES FROM THIS AM. PT ABLE TO FEED SELF. CLEAR YELLOW URINE NOTED IN FC. CALL LIGHT IN REACH. WILL CONT POC
[2017-04-27 16:00] VITALS: BP 145/58
[2017-04-27 19:13] VITALS: BP 112/50
--- NOTE | 2017-04-27 21:49 | NUR ---
HS MEDS GIVEN WITH FRESH ICE WATER, BS 186, COVERED PER S/S. PT DENIES NEEDS, BED LOW, CL IN REACH.
[2017-04-28] VITALS: BP 107/44
--- NOTE | 2017-04-28 03:45 | NUR ---
RESTING WITH EYES CLOSED, RESPERATIONS EVEN, NO S/S DISTRESS NOTED.
--- NOTE | 2017-04-28 04:26 | NUR ---
IMPLANT POLISHER AT BEDSIDE TO OBTAIN VITALS, CALL LIGHT IN REACH. WILL CONTINUE WITH PLAN OF CARE.
[2017-04-28 04:28] VITALS: BP 117/47
--- NOTE | 2017-04-28 05:39 | NUR ---
AM BS RESULTED 68, APPLE SAUCE GIVEN WITH MORNING MEDS, WILL CONT TO MONITOR.
--- NOTE | 2017-04-28 07:00 | NUR ---
REPORT RECIEVEDD FROM OFF GOINGG RN. PT IN BED RESTING WITH EYES CLOSED WITH 0 S/SX OF DISTRESS/DISCOLMFORT NOTED. BREATHING NORMAL AND UNLABORED. SEE FLOW SHEET OR ASSESMENT. CALL LIGHT IN REACH. WILL CONT POC
[2017-04-28 07:58] VITALS: BP 114/54
--- NOTE | 2017-04-28 10:07 | NUR ---
Nutrition Follow Up: Pt is eating 89% meal avg on a diabetic [facility] soft diet. +BM 04/25/17. Wt gain noted. Labs reviewed - Glucose high and low. Meds noted including Lasix. Rec continue current diet. RD following.
[2017-04-28 11:16] VITALS: BP 127/52
--- NOTE | 2017-04-28 12:00 | NUR ---
PT WATCHING TV IN BED. DENIES NEEDS. REPOSITONED FOR COMFORT. CALL LIGHTY IN REACH. WILL CONT POC
[2017-04-28 12:36] LABS: HEMATOCRIT 33.8 % (36.0-48.0); HEMOGLOBIN 10.7 g/dL (12-16); MCH 30.7 pg (26.0-34.0); MCHC 31.7 g/dL (31.0-37.0); MCV 96.8 fL (80.0-100.0); MEAN PLATELET VOLUME 11.7 fL (7.4-10.4); PLATELET COUNT 209 10x3/uL (130-400); RBC 3.49 10x6/uL (4.00-5.40); RDW 14.9 % (11.5-14.5); WBC 22.3 10x3/uL (4.8-10.8)
[2017-04-28 12:45] LABS: ANION GAP 11.3 mmol/L (8-16); CALCIUM 8.2 mg/dL (8.5-10.1); CREATININE - SERUM 1.2 mg/dL (0.6-1.3); POTASSIUM - SERUM 5.3 mmol/L (3.5-5.1)
[2017-04-28 12:53] LABS: EOSINOPHILS 1 % (0-7); LYMPHOCYTES 4 % (15-50); MONOCYTES 11 % (2-11); NEUTROPHILS 81 % (40-80); PLATELET ESTIMATE NORMAL
[2017-04-28 15:41] VITALS: BP 122/43
--- NOTE | 2017-04-28 17:00 | NUR ---
IN BED EATING FOOD WITH NO ISSUES. NO S/SX OF DISTRESS/DISCOMFORT NOTED. CALL LIGHT IN REACH. WILL CONT POC.
[2017-04-28 19:00] VITALS: BP 138/58
--- NOTE | 2017-04-28 19:30 | NUR ---
ALERT/AWAKE DENIES ANY NEEDS OR DISCOMFORT. ASSESSMENTS COMPLETED. TELEMETRY SHOWS 75 SR. L CHEST IP NOTED. SIEGEL INTACT/PATENT DRAINING TO GRAVITY. ORIENTED TO CALL LIGHT FOR ANY NEEDS.
--- NOTE | 2017-04-29 03:25 | NUR ---
C/O LEG PAIN LEVEL 10 ON NUMBER SCALE, DESCRIBED SHARP, STABBING PAIN. ADMIN NORCO PO PER REQUEST.
[2017-04-29 04:00] VITALS: BP 126/49
[2017-04-29 06:15] LABS: BASOPHILS 0.2 % (0-2); EOSINOPHILS 1.6 % (0-7); HEMATOCRIT 32.3 % (36.0-48.0); HEMOGLOBIN 10.3 g/dL (12-16); IMMATURE GRANULOCYTES 1.5 % (0-5); LYMPHOCYTES 13.9 % (15-50); MCH 30.7 pg (26.0-34.0); MCHC 31.9 g/dL (31.0-37.0); MCV 96.4 fL (80.0-100.0); MEAN PLATELET VOLUME 11.5 fL (7.4-10.4); MONOCYTES 10.9 % (2-11); NEUTROPHILS 71.9 % (40-80); PLATELET COUNT 208 10x3/uL (130-400); RBC 3.35 10x6/uL (4.00-5.40); RDW 14.8 % (11.5-14.5)
[2017-04-29 06:17] LABS: WBC 15.4 10x3/uL (4.8-10.8)
[2017-04-29 06:42] LABS: ANION GAP 8.9 mmol/L (8-16); CALCIUM 8.6 mg/dL (8.5-10.1); CARBON DIOXIDE 31.6 mmol/L (21.0-32.0); CREATININE - SERUM 1.2 mg/dL (0.6-1.3)
[2017-04-29 06:43] LABS: POTASSIUM - SERUM 4.5 mmol/L (3.5-5.1)
--- NOTE | 2017-04-29 06:43 | NUR ---
ADMIN 25 ML OF 50% DEXTROSE FOR BLOOD SUGAR 42. PATIENT ASYMPTOMATIC. STATED SHE FELT "Ok" AND TOOK HER PROTONIX WITH SIPS OF WATER. RECHECKED AT 84.
[2017-04-29 07:51] VITALS: BP 101/48
[2017-04-29 15:32] VITALS: BP 124/55
--- NOTE | 2017-04-29 18:35 | NUR ---
PATIENT IS LYING IN BED IN NO DISTRESS. O2 ON AT 2L/NC. SIDERAILS X 2. BED IN LOW POSITION. COMPLETE BED BATH GIVEN PER STUDENTS. CALL LIGHT IN REACH.
--- NOTE | 2017-04-29 19:54 | NUR ---
RESUMED CARE OF PT, LYING IN BED RESPIRAITONS EVEN AND UNLABORED ON 2LPM VIA NC. 86 SR ON TELEMETRY. LEFT CHEST INFUSAPORT INFUSING NS @ KVO. SIEGEL TO GRAVITY. NO NEEDS NOTED AT THIS TIME, CALL LIGHT IN REACH. WILL CONTINUE TO MONITOR. SEE NURSE ASSESSMENT.
[2017-04-29 20:52] VITALS: BP 132/45
[2017-04-30 00:16] VITALS: BP 129/50
--- NOTE | 2017-04-30 01:54 | NUR ---
LYING IN BED WITH EYES CLOSED, CALL LIGHT IN REACH. WILL CONTINUE WITH PLAN OF CARE.
[2017-04-30 05:14] LABS: BASOPHILS 0.1 % (0-2); EOSINOPHILS 2.2 % (0-7); HEMATOCRIT 31.4 % (36.0-48.0); HEMOGLOBIN 9.8 g/dL (12-16); IMMATURE GRANULOCYTES 1.9 % (0-5); LYMPHOCYTES 18.9 % (15-50); MCH 30.2 pg (26.0-34.0); MCHC 31.2 g/dL (31.0-37.0); MCV 96.9 fL (80.0-100.0); MEAN PLATELET VOLUME 11.3 fL (7.4-10.4); MONOCYTES 11.2 % (2-11); NEUTROPHILS 65.7 % (40-80); PLATELET COUNT 205 10x3/uL (130-400); RBC 3.24 10x6/uL (4.00-5.40); RDW 14.8 % (11.5-14.5); WBC 12.3 10x3/uL (4.8-10.8)
[2017-04-30 05:35] LABS: ANION GAP 9.1 mmol/L (8-16); CALCIUM 8.1 mg/dL (8.5-10.1); CREATININE - SERUM 1.1 mg/dL (0.6-1.3); POTASSIUM - SERUM 5.1 mmol/L (3.5-5.1)
--- NOTE | 2017-04-30 06:27 | NUR ---
NO CHANGES FROM PREVIOUS ASSESSMENT, CALL LIGHT IN REACH. WILL CONTINUE TO MONITOR.
[2017-04-30 08:00] VITALS: BP 135/55
--- NOTE | 2017-04-30 09:44 | NUR ---
AM ROUNDS COMPLETED. INTRODUCED MYSELF TO PT PRIMARY RN FOR TODAYS SHIFT. MORNING MEDICATIONS GIVEN. PT A&O SITTING UP IN BED WATCHING TV. RR NONLABORED WITH NC @2L IN PLACE. RR SHALLOW BUT CTA LOWER LOBES DIMINISHED. PT HAS A LEFT CHEST IP WITH NS INFUSING, INTIATED IVPB ANBX DRSG CDI BUT DOES NOT HAVE BIOPATCH IN PLACE SO I WILL CHANGE TODAY PER PROTOCOL. PT DENIES ANY CURRENT PAIN OR NEEDS AT THIS TIME. CL IN REACH, BED IN LOWEST, SIDE RAILS X2 WILL CPOC.
--- NOTE | 2017-04-30 11:16 | NUR ---
FSBS 126 NO COVERAGE REQUIRED PER SS. PT LYING BACK IN BED RESTING QUIETLY AND DENIES ANY CURRENT PAIN OR NEEDS. CL IN REACH. WILL CPOC.
[2017-04-30 12:00] VITALS: BP 119/44
--- NOTE | 2017-04-30 13:57 | NUR ---
Nutrition Follow Up: Pt is eating 81% meal avg on a diabetic [facility] soft diet. +BM 04/25/17 - no BM x 5 days. Wt stable. Labs reviewed - Glucose elevated. Meds noted. Rec continue current diet. RD following.
--- NOTE | 2017-04-30 14:17 | NUR ---
PT RESTING QUIETLY IN BED WATCHING TV. RR NONLABORED. PT REC'D BED BATH AND NYSTATIN WAS APPLIED. PT VOICED THANKS AND DENIES ANY CURRENT PAIN OR NEEDS. CL IN REACH, BED IN LOWEST, SIDE RAILS X2. WILL CPOC.
[2017-04-30 16:00] VITALS: BP 129/40
--- NOTE | 2017-04-30 17:28 | NUR ---
STERILE DRSG CHANGE DONE TO L.CHEST IP. BIOPATCH IN PLACE, DRSG ADHERED TO SKIN, SWAB CAPS IN USE. PT C/O FEELING CONSTIPATED, WILL CHECK FOR STOOL PRN MEDS. PT VOICED THANKS AND IS SITTING UP IN BED RESTING QUIETLY AND DENIES ANY FURTHER NEEDS AT THIS TIME. CL IN REACH, BED IN LOWEST, SIDE RAILS X2. WILL CPOC.
[2017-04-30 19:00] VITALS: BP 128/47
--- NOTE | 2017-04-30 21:26 | NUR ---
PATIENT IS ALERT IN BED RESTING, CALL LIGHT IN REACH. DENIES NEEDS AT THIS TIME. WILL CONTINUE TO MONITOR.
--- NOTE | 2017-05-01 03:40 | NUR ---
CALL LIGHT IN REACH, WILL CONTINUE WITH PLAN OF CARE.
[2017-05-01 04:00] VITALS: BP 149/95
[2017-05-01 05:47] LABS: BASOPHILS 0.1 % (0-2); EOSINOPHILS 2.5 % (0-7); HEMATOCRIT 33.2 % (36.0-48.0); HEMOGLOBIN 10.5 g/dL (12-16); IMMATURE GRANULOCYTES 2.2 % (0-5); MCH 30.3 pg (26.0-34.0); MCHC 31.6 g/dL (31.0-37.0); MCV 95.7 fL (80.0-100.0); MONOCYTES 9.1 % (2-11); NEUTROPHILS 62.1 % (40-80); RBC 3.47 10x6/uL (4.00-5.40); RDW 14.7 % (11.5-14.5); WBC 13.4 10x3/uL (4.8-10.8)
[2017-05-01 06:13] LABS: PLATELET COUNT 255 10x3/uL (130-400)
[2017-05-01 06:28] LABS: ANION GAP 10.8 mmol/L (8-16); CALCIUM 8.2 mg/dL (8.5-10.1); POTASSIUM - SERUM 4.8 mmol/L (3.5-5.1)
[2017-05-01 08:00] VITALS: BP 120/49
--- NOTE | 2017-05-01 08:33 | NUR ---
UP IN BED EATING BREAKFAST AT THIS TIME. DENIES ANY NEEDS. NO ACUTE DISTRESS NOTED. WILL CONTINUE PLAN OF CARE.
--- NOTE | 2017-05-01 10:32 | NUR ---
RESTING IN BED AT THIS TIME, RESPIRATIONS STEADY AND UNLABORED. NO ACUTE DISTRESS NOTED. AWAKENS EASILY WHEN SPOKEN TO. TURNED Q2H. WILL CONTINUE PLAN FO CARE.
[2017-05-01 12:00] VITALS: BP 119/43
--- NOTE | 2017-05-01 12:31 | NUR ---
AWAKE IN BED EATING LUNCH AT THIS TIME VIA SET UP ASSIST. NO ACUTE DISTRESS NOTED. WILL CONTINUE PLAN OF CARE.
--- NOTE | 2017-05-01 15:25 | NUR ---
UP IN BED WATCHING TV AT THIS TIME. NO ACUTE DISTRESS NOTED. WILL CONTINUE PLAN OF CARE.
[2017-05-01 15:39] VITALS: BP 119/43
--- NOTE | 2017-05-01 18:13 | NUR ---
BED BATH PROVIDED BY NURSING STAFF. INCONTINENT BOWEL MOVEMENT NOTED. LARGE BROWN FORMED BOWEL MOVEMENT. JAY CARE PROVIDED VIA TOTAL ASSIST. PT HELPS TURN VIA MODERATE ASSIST. NO ACUTE DISTRESS NOTED. WILL CONTINUE PLAN OF CARE.
[2017-05-01 19:00] VITALS: BP 127/48
[2017-05-02] VITALS: BP 138/50
--- NOTE | 2017-05-02 01:09 | NUR ---
PATIENT IS RESTING WELL IN BED WITH CALL LIGHT IN REACH, NASAL CANNULA IN PLACE AT 2 LITERS.
--- NOTE | 2017-05-02 03:41 | NUR ---
RESTING WITH EYES CLOSED. RR EVEN U/L. NO S/S OF DISCOMFORT. CL IN REACH.
[2017-05-02 04:00] VITALS: BP 127/45
[2017-05-02 05:50] LABS: BASOPHILS 0.2 % (0-2); EOSINOPHILS 2.7 % (0-7); HEMATOCRIT 31.9 % (36.0-48.0); HEMOGLOBIN 9.9 g/dL (12-16); IMMATURE GRANULOCYTES 1.8 % (0-5); LYMPHOCYTES 29.3 % (15-50); MCH 29.8 pg (26.0-34.0); MCV 96.1 fL (80.0-100.0); PLATELET COUNT 245 10x3/uL (130-400); RBC 3.32 10x6/uL (4.00-5.40); RDW 14.7 % (11.5-14.5); WBC 13.4 10x3/uL (4.8-10.8)
[2017-05-02 06:15] LABS: ANION GAP 10.4 mmol/L (8-16); CARBON DIOXIDE 31.3 mmol/L (21.0-32.0); CREATININE - SERUM 0.9 mg/dL (0.6-1.3); POTASSIUM - SERUM 4.7 mmol/L (3.5-5.1); VANCOMYCIN - RANDOM 19.5 ug/mL (10.0-20.0)
[2017-05-02 06:30] LABS: CALCIUM 6.9 mg/dL (8.5-10.1)
[2017-05-02 08:00] VITALS: BP 111/58
--- NOTE | 2017-05-02 08:57 | NUR ---
UP IN BED WATCHING TV AND EATING BREAKFST AT THIS TIME. DENIES ANY NEEDS. NO ACUTE DISTRESS NOTED. WILL CONTINUE PLAN OF CARE.
--- NOTE | 2017-05-02 11:59 | NUR ---
NO CHANGE; UP IN BED WATCHING TV AND EATING LUNCH. DENIES ANY NEEDS. WILL CONTINUE PLAN OF CARE.
[2017-05-02 12:00] VITALS: BP 118/47
--- NOTE | 2017-05-02 14:59 | NUR ---
TURNED Q2H. PT ABLE TO STATE NEEDS. NO ACUTE DISTRESS NOTED. WILL CONTINUE PLAN OF CARE.
[2017-05-02 16:39] VITALS: BP 126/51
--- NOTE | 2017-05-02 17:59 | NUR ---
RESTING IN BED AT THIS TIME. RESPIRATIONS STEADY AND UNLABORED. AWAKENS EASILY WHEN SPOKEN TO. NO ACUTE DISTRESS NOTED. WILL CONTNIUE PLAN OF CARE.
[2017-05-02 20:00] VITALS: BP 116/51
--- NOTE | 2017-05-02 23:59 | NUR ---
PT RESTING WELL WITHOUT C/O OR DISTRESS NOTED. FEW NEEDS VOICED. CALL LIGHT WITHIN REACH.
--- NOTE | 2017-05-03 04:02 | NUR ---
ASSESSMENT COMPLETE, SEE FLOWSHEET, PT AWAKE, ASK FOR DIET COKE, DENIES ANY OTHER NEEDS, BED IS LOW, SRX2, SCD ARE ON, CALL LIGHT IN REACH, WILL CONTINUE PLAN OF CARE
[2017-05-03 05:35] LABS: BASOPHILS 0.3 % (0-2); EOSINOPHILS 1.9 % (0-7); HEMATOCRIT 31.4 % (36.0-48.0); HEMOGLOBIN 9.6 g/dL (12-16); IMMATURE GRANULOCYTES 1.8 % (0-5); LYMPHOCYTES 27.6 % (15-50); MCH 30.4 pg (26.0-34.0); MCHC 30.6 g/dL (31.0-37.0); MEAN PLATELET VOLUME 11.9 fL (7.4-10.4); MONOCYTES 8.3 % (2-11); NEUTROPHILS 60.1 % (40-80); RBC 3.16 10x6/uL (4.00-5.40); RDW 14.9 % (11.5-14.5); WBC 13.3 10x3/uL (4.8-10.8)
[2017-05-03 05:36] LABS: MCV 99.4 fL (80.0-100.0); PLATELET COUNT 172 10x3/uL (130-400)
[2017-05-03 05:59] LABS: CALC OSMOLALITY 286 mosm/kg (275-300); CALCIUM 7.9 mg/dL (8.5-10.1); CHLORIDE - SERUM 107 mmol/L (98-107); CREATININE - SERUM 0.8 mg/dL (0.6-1.3); POTASSIUM - SERUM 4.5 mmol/L (3.5-5.1); SODIUM 141 mmol/L (136-145); UREA NITROGEN 37 mg/dL (7-18); eGFR NON AFRICAN AMERICAN 76 mL/min (90-120)
[2017-05-03 06:00] LABS: GLUCOSE 52 mg/dL (74-106)
--- NOTE | 2017-05-03 06:05 | NUR ---
BLOODGAR-56, GAVE DAVID AND CÉSAR COOK, WILL RECHECK
[2017-05-03 06:33] VITALS: BP 124/55
[2017-05-03 09:09] VITALS: BP 133/55
[2017-05-03 12:42] VITALS: BP 142/55
--- NOTE | 2017-05-03 14:00 | NUR ---
ALERT AND ORIENTED X4. BED BATH AND LINEN CHANGE COMPLETE. FIRST STEP OVERLAY BED OPERATING PROPERLY. DENIES PAIN OR SOB. ASSIST REPOSITIONING IN BED. DENIES ANY NEEDS. RUFINO OINTMENT APPLIED TO BUTTOCKS. NYSTATIN APPLIED TO ABDOMINAL FOLDS, BREAST FOLDS BILATERALLY, AND JAY AREA ORDERED. BED LOCKED AND LOW. CALL LIGHT IN REACH. TWO SIDERAILS UP. SINUS RHTHYM 78bpm ON TELEMETRY.
[2017-05-03 16:39] VITALS: BP 123/41
[2017-05-03 19:00] VITALS: BP 120/52
--- NOTE | 2017-05-03 19:20 | NUR ---
RECEIVED REPORT, WILL ASSUME CARE OF PT, PT WATCHING TV, DENIES ANY NEEDS, BED IS LOW, SRX2, SCD ARE ON, CALL LIGHT IN REACH, WILL CONTINUE PLAN OF CARE
[2017-05-04] VITALS: BP 140/54; BP 144/56
--- NOTE | 2017-05-04 05:14 | NUR ---
ASSESSMENT COMPLETE, SEE FLOWSHEET, PT SLEEPING, BED SI LOW, SRX2, CALL LIGHT IN REACH, SCD ARE ON, WILL CONTINUE PLAN OF CARE
[2017-05-04 05:45] LABS: BASOPHILS 0.2 % (0-2); IMMATURE GRANULOCYTES 1.6 % (0-5); LYMPHOCYTES 30.5 % (15-50); MCH 30.2 pg (26.0-34.0); MCHC 31.3 g/dL (31.0-37.0); MEAN PLATELET VOLUME 10.7 fL (7.4-10.4); MONOCYTES 6.9 % (2-11); NEUTROPHILS 58.8 % (40-80); RBC 3.31 10x6/uL (4.00-5.40); RDW 14.9 % (11.5-14.5); WBC 12.2 10x3/uL (4.8-10.8)
[2017-05-04 05:48] LABS: MCV 96.7 fL (80.0-100.0); PLATELET COUNT 252 10x3/uL (130-400)
[2017-05-04 05:58] LABS: CALC OSMOLALITY 288 mosm/kg (275-300); CALCIUM 8.1 mg/dL (8.5-10.1); CARBON DIOXIDE 31.3 mmol/L (21.0-32.0); CHLORIDE - SERUM 103 mmol/L (98-107); CREATININE - SERUM 0.8 mg/dL (0.6-1.3); GLUCOSE 72 mg/dL (74-106); POTASSIUM - SERUM 4.3 mmol/L (3.5-5.1); SODIUM 142 mmol/L (136-145); UREA NITROGEN 32 mg/dL (7-18); eGFR NON AFRICAN AMERICAN 76 mL/min (90-120)
--- NOTE | 2017-05-04 06:12 | NUR ---
BLOODSUGAR-76, NO COVERAGE NEEDED, GAVE CRANBERRY JUCIE
[2017-05-04 08:00] VITALS: BP 129/53
--- NOTE | 2017-05-04 11:08 | NUR ---
Nutrition Follow Up: Pt is eating 78% meal avg on a diabetic [facility] soft diet. She is receiving Glucerna with meals. +BM 05/03/17. Wt stable. Meds noted including Lasix. Labs reviewed. Rec continue current diet, supplement regimen. RD following.
[2017-05-04] MEDS ORDERED: PREDNISONE10 MG PO (11:41)
--- NOTE | 2017-05-04 16:08 | NUR ---
ALERT AND ORIENTED X4. RESTING IN BED. LT CHEST IP FLUSHED. DC IP TIP INTACT. DC SIEGEL BULB INTACT. DISCHARGE INSTRUCTIONS GIVEN VERBALLY AND WRITTEN. DISCHARGE PAPERS SIGNED ON CHART. CALLED NIECE TO NOTIFY [facility] CALLED. NO ANSWER, LEFT A MESSAGE. [facility] CALLED FOR TRANSFER. CONTINUE PLAN OF CARE AND SAFETY PRECAUTIONS.
--- NOTE | 2017-05-04 16:49 | NUR ---
[facility] ARRIVE FOR TRANSPORT. ASSIST TRANSFER FROM BED TO STRETCHER. REMAINS FREE FROM INJURY.
--- NOTE | 2017-05-04 18:29 | NUR ---
Patient Name: MODE ORTIZ Encounter No: [id number] : 1950 Primary Insurance: MEDICAID [facility] [place] Date: 04-28-2017 Planned Disposition: Home with Home Health External Planned Provider: [facility] LATE ENTRY: DCP follow-up note: CM RECEIVED DISCHARGE ORDER, PT HAS DISCHARGED HOME, NO NEED FOR OXYGEN OR NEBLUIZER. CM CALLED MARIFER OF [facility], , LEFT MESSAGE NOTIFYING OF DISCHARGE FOR RESUMPTION OF HOME HEALTH. CM CALLED [facility], , SPOKE TO ANSWERING SERVICE, ANTONIO, WHO WILL NOTIFY THE [employer] OPERATORLEGAL SUMMER INTERN. CM FAXED DISCHARGE AND HOSPITAL INFORMATION TO [facility] AT [phone]. NO FURTHER DISCHARGE NEEDS KNOWN. Michi Gomez, CASE MANAGEMENT
--- NOTE | 2017-05-11 11:43 | CN ---
PATIENT NAME:MODE CHAVES MEDICAL RECORD: [id number] : 54 LOCATION:D.M2 D.2111 ADMIT DATE: 04/17/17 ACCOUNT: [id number] CONSULTING PHYSICIAN: SHAMA LEMA MD REFERRING PHYSICIAN: JULIANA HINOJOSA DO DATE OF CONSULTATION: 04/19/2017 CONSULT REQUESTING PHYSICIAN: Juliana Hinojosa DO REASON FOR CONSULTATION: Pneumonia, pulmonary edema, asthma exacerbation. HISTORY OF PRESENT ILLNESS: Ms. Chaves is a 66-year-old female who was recently admitted to [facility]. Over there she was with acute renal failure, she had dialyzed times 1. She was discharged home. The patient came back over here with some shortness of breath. Also, she has a fall. She was thinking that she has fractured her hip. She has some orthopnea, PND. On evaluation, she was found she has elevated proBNP as well as abnormal chest radiograph. Denies any fever or chill, no night sweats. REVIEW OF SYSTEMS: Mainly in the history of present illness. PAST MEDICAL HISTORY: 1. Rheumatoid arthritis. The patient is not sure if she was taking methotrexate in the past. 2. Hypothyroidism. 3. Diabetes mellitus. 4. Recent acute renal failure. PAST SURGICAL HISTORY: She has a knee surgery here. ALLERGIES: There are no known drug allergies. MEDICATIONS: On ZetrOZ is reviewed. PERSONAL AND SOCIAL HISTORY: The patient is a nonsmoker, nondrinker. FAMILY HISTORY: Significant for cardiovascular diseases. PHYSICAL EXAMINATION: GENERAL: Now, the patient is lying comfortably in bed. She is not in acute distress. VITAL SIGNS: The blood pressure is 161/50, pulse is 62, respiration is 18, temperature 98.4, and SPO2 is 95% on 4 liters nasal cannula. HEENT: Conjunctivae are pink. Sclerae nonicteric. NECK: Supple. No JVD. CHEST: There are bilateral crackles. No wheezing. HEART: Rhythm regular, normal sound, no murmur. ABDOMEN: Soft. Bowel sounds present. No hepatosplenomegaly. RECTAL: Deferred. EXTREMITIES: No cyanosis. No clubbing. A 1+ pedal edema. SKIN: Warm, normal turgor. CENTRAL NERVOUS SYSTEM: The patient is awake and alert. There are no obvious cranial nerve abnormality. She has rheumatoid arthritic changes in her hands. IMAGING: Chest radiograph, there are increased interstitial markings CONSULT REPORT [id number] MODE CHAVES bilaterally, which is worse compared to the chest x-ray at [facility]. OTHER LABORATORY DATA: CBC; WBC is 12.3, hemoglobin is 11, hematocrit is 35.5, the platelet count is 400. Chemistry; sodium 138, potassium 4.3, BUN is 48, creatinine is 1.6. The proBNP is 55,077. IMPRESSION: 1. Acute hypoxic respiratory failure. 2. Pneumonia, bilateral, possible hospital-acquired pneumonia. 3. Associated pulmonary edema. 4. Acute congestive heart failure, possible diastolic dysfunction. 5. Asthma with acute exacerbation. 6. Rheumatoid arthritis. 7. Acute renal failure. RECOMMENDATION: 1. Continue methylprednisolone IV, albuterol, ipratropium nebulizers, Levaquin IV. I will add cefepime to cover for hospital-acquired pneumonia and gram-negative yazan. 2. Start on Singulair. 3. Add Brovana and budesonide nebulizer. Continue albuterol/ipratropium nebulizer. 4. Follow up labs and chest radiograph. Dr. Hinojosa, thank you for involving me in the care of Ms. Chaves. TRANSINT:[id number] Voice Confirmation ID: [id number] DOCUMENT ID: [id number] SHAMA LEMA MD at 1143 CC: JULIANA HINOJOSA DO [id number] DICTATION DATE: 04/19/17 1343 [id number] THERAPIST: 04/19/17 1601 DIS IN 05/04/17 [id number] [place] [address]
== END 2017-05-04 16:50 | disposition home health service (06) | DRG 291 ==
LOC: D.ER 12:21 → D.M2 20:17
PROVIDERS: Emergency Medicine; Family Medicine; Internal Medicine Pulmonary Disease; ADMIT Family Medicine
PROC: 0T9B70Z Drainage of Bladder with Drainage Device, Via Natural or Artificial Opening (ICD-10-PCS; principal; 2017-04-27)
DX: I13.0 Hypertensive heart and chronic kidney disease with heart failure and stage 1 through stage 4 chronic kidney disease, or unspecified chronic kidney disease (principal); J96.01 Acute respiratory failure with hypoxia; J18.9 Pneumonia, unspecified organism; I50.33 Acute on chronic diastolic (congestive) heart failure; R53.2 Functional quadriplegia; J44.0 Chronic obstructive pulmonary disease with (acute) lower respiratory infection; J45.901 Unspecified asthma with (acute) exacerbation; N17.9 Acute kidney failure, unspecified; J98.11 Atelectasis; I24.8 Other forms of acute ischemic heart disease; J44.1 Chronic obstructive pulmonary disease with (acute) exacerbation; E11.65 Type 2 diabetes mellitus with hyperglycemia; E11.22 Type 2 diabetes mellitus with diabetic chronic kidney disease; N18.9 Chronic kidney disease, unspecified; E03.9 Hypothyroidism, unspecified; M06.9 Rheumatoid arthritis, unspecified; D64.9 Anemia, unspecified; I48.91 Unspecified atrial fibrillation; I34.0 Nonrheumatic mitral (valve) insufficiency